=== PATIENT | male | born 2005 | race Caucasian/White ===

== ENCOUNTER 2023-04-07 01:06 | Inpatient (IN) | payer BC, SELFPAY ==
[2023-04-07] MEDS ORDERED: fentaNYL 50 mcg/mL 1 mL Vial ONE (01:29)
[2023-04-07 01:44] LABS: Bilirubin Neg (Negative); Blood, Urine Negative (Negative); Clarity Clear (Clear); Glucose, Urine (Dipstick) Normal (Negative); Ketone, Urine Negative (Negative); Leukocyte Negative (Negative); Nitrite Negative (Negative); Protein, Urine (Dipstick) Negative (Neg-Trace); Specific Gravity, Urine 1.005 (1.005-1.030); Urobilinogen Normal mg/dL (Less than 2)
[2023-04-07 01:51] LABS: Amphetamine Not Detected (NotDetected); Barbiturates Screen Not Detected (NotDetected); Benzodiazepine Screen Not Detected (NotDetected); Cocaine Metabolite Screen Not Detected (NotDetected); Methadone Not Detected (NotDetected); Methamphetamine Not Detected (NotDetected); Opiate Screen Not Detected (NotDetected); Oxycodone Screen Not Detected (NotDetected); Phencyclidine (PCP) Not Detected (NotDetected); THC/Cannabinoid Screen Not Detected (NotDetected); Tricyclic Screen Not Detected (NotDetected)
[2023-04-07 01:54] LABS: Bacteria/HPF None Seen HPF (None Seen); CAUTI Indications for Culture Alt mental st,lethar; RBC/HPF None Seen HPF (0-3); Squamous Epithelial None Seen HPF (0-3); WBC/HPF 0-3 HPF (0-3)
[2023-04-07 01:55] LABS: ALV-art Gradient 471.475 mmHg (0-20); Actual Bicarbonate (HCO3a) 19.1 mEq/L (22-28); Base Excess (BEa) -5.5 mEq/L (-2.0 to +3.0); CO2 Tension 34.9 mmHg (35.0-45.0); Calcium, Ionized (arterial) 1.09 mmol/L (1.12-1.30); Carboxyhemoglobin (COHb) 0.8 gm% (0.0-3.0); Critical Notified By: CP.PH; Hematocrit-ABG 49 % (42.0-52.0); Hemoglobin (Hb) 16.7 g/dL (14.0-18.0); O2 Tension (PaO2), arterial 197.9 mmHg (80.0-100.0); Potassium - ABG Lab 3.31 mmol/L (3.70-5.30); Puncture Site Other Site; RapidComm Collect By LAB.YY; pH, Arterial 7.355 (7.35-7.45)
[2023-04-07 01:55] LABS: Urine Culture Reflex No No
[2023-04-07 02:04] LABS: #Eosinphils 0.1 10x3/uL (0.0-0.5); #Monocytes 0.7 10x3/uL (0.0-1.1); #Neutrophils 8.1 10x3/uL (1.5-8.4); %Basophils 0.4 % (0.0-2.0); %Eosinophils 1.1 % (0.0-6.0); %Lymphocytes 16.6 % (18.0-47.0); %Monocytes 6.6 % (0.0-10.0); Hematocrit 46.9 % (38.8-50.0); Hemoglobin 15.9 g/dL (13.5-17.5); Mean Corpuscular HGB CONC 33.9 g/dL (32.0-36.0); Mean Corpuscular Hemoglobin 29.8 pg (27.0-33.0); Platelet Count 222 10x3/uL (150-450); RBC Distribution Width 12.5 % (11.5-14.5); Red Blood Cell (RBC) Count 5.33 10x6/uL (4.32-5.72); White Blood Cell (WBC) Count 10.7 10x3/uL (3.5-10.5)
[2023-04-07 02:14] LABS: ALT (SGPT) 13 U/L (8-55); AST (SGOT) 16 U/L (10-45); Acetaminophen Less than 10 mcg/mL (10.0-30.0); Albumin 4.4 g/dL (3.5-5.0); Alkaline Phosphatase 58 U/L (50-130); Anion Gap 17 mmol/L (10-20); BUN (Urea Nitrogen) 11 mg/dL (8.4-21.0); Bilirubin, Total 0.7 mg/dL (0.2-1.2); Calc. Creatinine Clearance 0 mL/min (70-130); Calcium 8.4 mg/dL (7.8-10.44); Carbon Dioxide 18 mmol/L (22-29); Chloride 108 mmol/L (98-107); Estimated GFR 128; Globulin 2.6 g/dL (2.4-3.5); Glucose 130 mg/dL (70-105); Potassium 3.1 mmol/L (3.5-5.1); Salicylate Less than 8.0 mg/dL (15.0-30.0); Sodium 140 mmol/L (136-145)
[2023-04-07 02:18] LABS: Alcohol Greater than 475.0 mg/dL (Less than 10)
[2023-04-07] MEDS ORDERED: NOREPINEPHRINE 8 MG/250 ML-D5W 250 ML ONE (02:23)
[2023-04-07] MEDS ORDERED: NOREPINEPHRINE 8 MG/250 ML-D5W 250 ML IVPB PRN (03:16)
[2023-04-07] MEDS ORDERED: Ondansetron PF 4 MG/2 ML Vial IVP PRN (03:18)
[2023-04-07] MEDS ORDERED: Ventilator Sedation Protocol 1 EACH FS SCH (03:30)
[2023-04-07] MEDS ORDERED: Propofol 1,000 MG/100 ML VIAL IV PRN (03:45)
[2023-04-07] MEDS ORDERED: Propofol BOLUS 1,000 MG/100 ML VIAL IV PRN (03:45)
[2023-04-07] MEDS ORDERED: FENTANYL 2,000MCG/100-0.9%NACL 100 ML IVPB SCH (03:45)
[2023-04-07] MEDS ORDERED: DISCONTINUE PREVIOUS NARCOTIC PAIN MEDICATIONS AND BENZODIAZEPINES FS SCH (03:45)
[2023-04-07] MEDS ORDERED: Morphine 2 MG/ML VIAL SLOW IVP PRN (03:45)
[2023-04-07] MEDS ORDERED: Fentanyl BOLUS 250 ML IVPB PRN (03:45)
[2023-04-07 03:47] VITALS: BMI 20.5
[2023-04-07 03:54] LABS: Magnesium 2.3 mg/dL (1.7-2.2)
[2023-04-07] MEDS: Potassium Chloride 20 MEQ in Premix Bag 1 BAG IVPB SCH ×2 (04:28→05:32)
[2023-04-07] MEDS: Pantoprazole 40 MG VIAL IVP SCH (08:01)
[2023-04-07] MEDS ORDERED: Electrolyte Replacement Protocol 1 EACH FS SCH (08:15)
[2023-04-07] MEDS: Thiamine HCl 200 MG/2 ML VIAL SLOW IVP SCH (09:14)
[2023-04-07] MEDS ORDERED: Lactated Ringer's 1,000 ML IV SCH (09:15)
[2023-04-07 09:56] LABS: Anion Gap 15 mmol/L (10-20); BUN (Urea Nitrogen) 6 mg/dL (8.4-21.0); Calc. Creatinine Clearance 133 mL/min (70-130); Calcium 7.6 mg/dL (7.8-10.44); Carbon Dioxide 19 mmol/L (22-29); Chloride 115 mmol/L (98-107); Estimated GFR 127; Glucose 103 mg/dL (70-105); Potassium 4.2 mmol/L (3.5-5.1); Sodium 145 mmol/L (136-145)
[2023-04-07] MEDS ORDERED: Piperacillin/Tazobactam 3.375 GM in Sodium Chloride 0.9% 100 ML IVPB SCH (12:15)
[2023-04-07] MEDS: Piperacillin/Tazobactam 3.375 GM in Sodium Chloride 0.9% 100 ML IVPB SCH ×2 (15:35→23:08)
[2023-04-07] MEDS: Dextrose 5%-Lactated Ringers 1,000 ML IV SCH (15:35)
[2023-04-07] MEDS: Lorazepam 2 MG/ML VIAL SLOW IVP PRN ×2 (16:05→20:16)
[2023-04-08] MEDS ORDERED: Acetaminophen 650 MG Suppository PR PRN (00:27)
[2023-04-08] MEDS: Dextrose 5%-Lactated Ringers 1,000 ML IV SCH ×3 (01:07→22:56)
[2023-04-08] MEDS: Lorazepam 2 MG/ML VIAL SLOW IVP PRN (03:19)
[2023-04-08 04:18] LABS: #Eosinphils 0.1 10x3/uL (0.0-0.5); #Monocytes 1.1 10x3/uL (0.0-1.1); #Neutrophils 5.8 10x3/uL (1.5-8.4); %Basophils 0.2 % (0.0-2.0); %Eosinophils 0.7 % (0.0-6.0); %Lymphocytes 20.3 % (18.0-47.0); %Monocytes 12.2 % (0.0-10.0); %Neutrophils 66.4 % (40.0-75.0); Hematocrit 39.6 % (38.8-50.0); Hemoglobin 13.1 g/dL (13.5-17.5); Mean Corpuscular HGB CONC 33.1 g/dL (32.0-36.0); Mean Corpuscular Hemoglobin 29.8 pg (27.0-33.0); Mean Platelet Volume 10.1 fl (7.4-10.4); Platelet Count 144 10x3/uL (150-450); RBC Distribution Width 12.5 % (11.5-14.5); White Blood Cell (WBC) Count 8.7 10x3/uL (3.5-10.5)
[2023-04-08 04:23] LABS: ALT (SGPT) 11 U/L (8-55); AST (SGOT) 13 U/L (10-45); Albumin 3.5 g/dL (3.5-5.0); Alkaline Phosphatase 48 U/L (50-130); Anion Gap 14 mmol/L (10-20); BUN (Urea Nitrogen) 6 mg/dL (8.4-21.0); Bilirubin, Total 0.8 mg/dL (0.2-1.2); Calc. Creatinine Clearance 119 mL/min (70-130); Calcium 8.1 mg/dL (7.8-10.44); Carbon Dioxide 23 mmol/L (22-29); Chloride 111 mmol/L (98-107); Estimated GFR 117; Globulin 2.2 g/dL (2.4-3.5); Glucose 99 mg/dL (70-105); Magnesium 1.7 mg/dL (1.7-2.2); Phosphorus 2.9 mg/dL (2.3-4.7); Potassium 3.6 mmol/L (3.5-5.1); Protein, Total 5.7 g/dL (6.0-8.3); Sodium 144 mmol/L (136-145)
[2023-04-08] MEDS ORDERED: Magnesium 2 GM/50 ML(in water) 2 GM in Premix Bag 1 BAG IVPB SCH (06:00)
[2023-04-08] MEDS: Pantoprazole 40 MG VIAL IVP SCH (07:33)
[2023-04-08] MEDS: Piperacillin/Tazobactam 3.375 GM in Sodium Chloride 0.9% 100 ML IVPB SCH ×2 (07:33→15:48)
[2023-04-08] MEDS: Thiamine HCl 200 MG/2 ML VIAL SLOW IVP SCH (07:54)
[2023-04-08] MEDS ORDERED: Ondansetron ODT 4 MG TAB PO PRN (10:32)
[2023-04-08] MEDS ORDERED: Lorazepam 1 MG TAB PO PRN (10:32)
[2023-04-08] MEDS: methylPREDNISolone Sod Succ 40 MG VIAL IVP SCH ×2 (11:07→22:02)
[2023-04-08] MEDS ORDERED: Acetaminophen 325 MG TAB PO PRN (11:36)
[2023-04-08] MEDS ORDERED: Multivit, Therapeutic 1 TAB PO SCH (21:00)
[2023-04-08] MEDS ORDERED: Folic Acid 1 MG TAB PO SCH (21:00)
[2023-04-09] MEDS: Piperacillin/Tazobactam 3.375 GM in Sodium Chloride 0.9% 100 ML IVPB SCH ×2 (00:22→08:14)
[2023-04-09 04:36] LABS: #Monocytes 0.5 10x3/uL (0.0-1.1); #Neutrophils 8.8 10x3/uL (1.5-8.4); %Basophils 0.1 % (0.0-2.0); %Lymphocytes 6.1 % (18.0-47.0); %Monocytes 4.9 % (0.0-10.0); %Neutrophils 88.6 % (40.0-75.0); Hematocrit 41.6 % (38.8-50.0); Mean Corpuscular HGB CONC 33.7 g/dL (32.0-36.0); Mean Corpuscular Volume 89.3 fl (81.2-95.1); Mean Platelet Volume 11.4 fl (7.4-10.4); Platelet Count 149 10x3/uL (150-450); RBC Distribution Width 11.8 % (11.5-14.5); Red Blood Cell (RBC) Count 4.66 10x6/uL (4.32-5.72)
[2023-04-09 04:54] LABS: Anion Gap 15 mmol/L (10-20); BUN (Urea Nitrogen) 5 mg/dL (8.4-21.0); Calc. Creatinine Clearance 150 mL/min (70-130); Calcium 9.4 mg/dL (7.8-10.44); Carbon Dioxide 23 mmol/L (22-29); Chloride 104 mmol/L (98-107); Estimated GFR 133; Glucose 143 mg/dL (70-105); Potassium 4.2 mmol/L (3.5-5.1); Sodium 138 mmol/L (136-145)
[2023-04-09] MEDS: Thiamine HCl 200 MG/2 ML VIAL SLOW IVP SCH (08:15)
[2023-04-09] MEDS ORDERED: Ipratropium/Albuterol 3 ML NEB NEB PRN (08:22)
[2023-04-09 10:12] VITALS: BP 125/69; TEMP 97.5
[2023-04-09] MEDS: methylPREDNISolone Sod Succ 40 MG VIAL IVP SCH (10:15)
[2023-04-09] MEDS ORDERED: Lorazepam 1 MG TAB PO PRN (10:33)
[2023-04-10] MEDS ORDERED: Lorazepam 1 MG TAB PO PRN (10:33)
[2023-04-11] MEDS ORDERED: Lorazepam 0.5 MG TAB PO PRN (10:33)
== END 2023-04-09 11:55 | disposition home or self-care (01) | DRG 871 ==
LOC: CSHERS 01:06 → EDSEX 01:06 → CSHICU 02:40 → EDBD 02:40
PROVIDERS: ADMIT Family Medicine; ATTEND Internal Medicine
PROC: 0BH17EZ Insertion of Endotracheal Airway into Trachea, Via Natural or Artificial Opening (ICD-10-PCS; principal; 2023-04-07)
PROC: 4A033R1 Measurement of Arterial Saturation, Peripheral, Percutaneous Approach (ICD-10-PCS; 2023-04-07)
PROC: 3E03329 Introduction of Other Anti-infective into Peripheral Vein, Percutaneous Approach (ICD-10-PCS; 2023-04-07)
PROC: 3E033XZ Introduction of Vasopressor into Peripheral Vein, Percutaneous Approach (ICD-10-PCS; 2023-04-07)
PROC: 5A1945Z Respiratory Ventilation, 24-96 Consecutive Hours (ICD-10-PCS; 2023-04-07)
DX: A41.9 Sepsis, unspecified organism (principal); G92.8 Other toxic encephalopathy; J96.01 Acute respiratory failure with hypoxia; J69.0 Pneumonitis due to inhalation of food and vomit; E87.20 Acidosis, unspecified; F10.929 Alcohol use, unspecified with intoxication, unspecified; E87.6 Hypokalemia; I95.9 Hypotension, unspecified; D69.6 Thrombocytopenia, unspecified; Z88.8 Allergy status to other drugs, medicaments and biological substances; Z91.013 Allergy to seafood
CPT/HCPCS: 36415; 36416; 51701; 71045; 71046; 80048; 80053; 80306; 80307; 81001; 82805; 83735; 84100; 85025; 87040; 94002; 94003; 94760; 94762; 96365; 96376; C9113; J1650; J2060; J2543; J2920; J3010; J3411; J3475; J3480; J3490; J7120